=== PATIENT | male | born 1965 | race Caucasian/White ===

== ENCOUNTER 2019-01-29 08:21 | Emergency (ER) | payer OTHER ==
[2019-01-29 08:42] VITALS: BP 128/86
[2019-01-29] MEDS ORDERED: Fluorescein Sodium TOPICAL* 1 MG TEST STRIP OPHTHALMIC ONE (08:53)
[2019-01-29] MEDS ORDERED: Tetracaine 0.5% OPTH.SOL 4 ML* 1 DROP BTL RIGHT EYE ONE (08:53)
[2019-01-29] MEDS ORDERED: Tetan/Diph/Pertus SYR(Tdap)* 0.5 ML SYR(BOOSTRIX) use SYR IM ONE (08:54)
--- NOTE | 2019-01-29 09:24 | UC ---
Eye Complaint HPI - HPI Summary HPI Summary: Pt presents with c/o gradual onset of right upper and lower lid swelling and yellow and green discharge, eye pain after working on a car undercarriage that was farzaneh and he states that he had farzaneh debris fall into right eye. Pt states that he flushed his eye at home last night frequently and with copious amounts of water. Pt states vision is "cloudy" and eye is painful. Pt is unsure last tetanus. - History of Current Complaint Chief Complaint: UCEye Stated Complaint: RIGHT EYE Time Seen by Provider: 01/29/19 08:45 Hx Obtained From: Patient Onset/Duration: Gradual Onset, Lasting Hours, Still Present, Worse Since - onset Timing: Constant Severity Initially: Mild Severity Currently: Moderate Pain Intensity: 3 Location of Injury: Sclera Character: Dull, Foreign Body Sensation Aggravating Factor(s): Other - opeinng eyelids Alleviating Factor(s): Nothing Associated Signs And Symptoms: Positive: Drainage (Purulent), Vision Impairment Right, Swelling Related History: Foreign Body - Risk Factors Penetrating Injury Risk Factor: Negative Globe Rupture Risk Factors: Negative Acute Glaucoma Risk Factors: Negative Optic Artery Occlusion Risk Factors: Negative - Allergies/Home Medications Allergies/Adverse Reactions: Allergies Allergy/AdvReac Type Severity Reaction Status Date / Time No Known Allergies Allergy Verified 01/29/19 08:42 Home Medications: Home Medications Aspirin [Aspir-Low] 81 mg PO DAILY 01/29/19 [History Confirmed 01/29/19] Atorvastatin* [Lipitor 20 MG*] 20 mg PO 1700 01/29/19 [History Confirmed ] PMH/Surg Hx/FS Hx/Imm Hx Previously Healthy: Yes Endocrine History: Dyslipidemia - Surgical History Surgical History: None - Family History Known Family History: Positive: Cardiac Disease - Social History Occupation: Employed Full-time Lives: With Family Alcohol Use: Rare Substance Use Type: None Smoking Status (MU): Heavy Every Day Tobacco Smoker Type: Cigarettes Amount Used/How Often: 1/2 ppd Length of Time of Smoking/Using Tobacco: since age 14 Have You Smoked in the Last Year: Yes - Immunization History Most Recent Tetanus Shot: unknown Vaccination Up to Date: No Review of Systems All Other Systems Reviewed And Are Negative: Yes Constitutional: Positive: Negative Skin: Positive: Negative Eyes: Positive: Blurred Vision - right, Drainage - right, Eye Redness - bilateral ENT: Positive: Negative Respiratory: Positive: Negative Cardiovascular: Positive: Negative Gastrointestinal: Positive: Negative Genitourinary: Positive: Negative Motor: Positive: Negative Neurovascular: Positive: Negative Musculoskeletal: Positive: Negative Neurological: Positive: Negative Psychological: Positive: Negative Is Patient Immunocompromised?: No Physical Exam Triage Information Reviewed: Yes Appearance: Pain Distress Vital Signs: Initial Vital Signs Temp 97.8 F 01/29/19 08:35 Pulse 86 01/29/19 08:35 Resp 16 01/29/19 08:35 BP 128/86 01/29/19 08:35 Pulse Ox 98 01/29/19 08:35 Vital Signs Reviewed: Yes Eyes: Positive: Conjunctiva Inflamed, Discharge - yelllow, Other: - upper and lower eyelids swollen, pt unable to open eye lids voluntarily until after tetracine eye drops. Fluroscein strip used and no uptake for corneal abrasion appreciated. Pt states taht eye and vision improved after tetracaine eyedrop and flush with 20 cc of normal saline. Pt able to open right eyelid voluntarily after numbing drops and flush. REports eye felt much better. ENT: Positive: Hearing grossly normal Dental Exam: Normal Neck exam: Normal Respiratory: Positive: No respiratory distress Musculoskeletal Exam: Normal Neurological Exam: Normal Psychological Exam: Normal Skin Exam: Normal Eye Complaint Course/Dx - Differential Dx/Diagnosis Differential Diagnosis/HQI/PQRI: Conjunctivitis, Foreign Body, Penetrating Injury Provider Diagnosis: Conjunctivitis, right eye Discharge ED - Sign-Out/Discharge Documenting (check all that apply): Patient Departure All imaging exams completed and their final reports reviewed: No Studies - Discharge Plan Condition: Stable Disposition: HOME Prescriptions: Cephalexin CAP* [Keflex 500 CAP*] 500 mg PO Q8H #30 cap Ofloxacin 0.3% (Eye Drop) [Ocuflox OPTH 0.3% (Eye Drop)] 2 drop RIGHT EYE Q4H 7 Days #1 btl Patient Education Materials: Conjunctivitis (ED) Referrals: Janet Cardenas MD [Medical Doctor] - As Soon As Possible No Primary Care Phys,NOPCP [Primary Care Provider] - Salas Herrera MD [Medical Doctor] - As Soon As Possible - Billing Disposition and Condition Condition: STABLE Disposition: Home
== END 2019-01-29 09:33 | disposition home or self-care (01) ==
LOC: UCCORT 08:21
DX: H10.31 Unspecified acute conjunctivitis, right eye (principal); Z23 Encounter for immunization; E78.5 Hyperlipidemia, unspecified; Z79.82 Long term (current) use of aspirin; F17.210 Nicotine dependence, cigarettes, uncomplicated
CPT/HCPCS: 90471; 90715; 99202; A9270-GY; G0463